=== PATIENT | female | born 1975 | race Caucasian/White ===

== ENCOUNTER → 2020-02-18 15:03 | Outpatient (CLI) | payer OTHER, SELFPAY ==
--- NOTE | ~2020-02-18 | XR_ITS ---
XR ankle RT min 3V DATE: 02/18/2020 15:45 INDICATION: Right ankle pain and bruising medially. Injury 2 days ago TECHNIQUE: 4 views COMPARISON: None FINDINGS: There is mild plantar calcaneal enthesopathy. No fracture or dislocation of the ankle or disruption of the ankle mortise. No periosteal reaction or bone destruction. IMPRESSION: Mild plantar calcaneal enthesopathy No significant abnormality of the right ankle Reviewed, dictated and finalized at location A.
== END ==
PROVIDERS: PCP Family Medicine; Visit Provider Family Medicine
DX: M77.31 Calcaneal spur, right foot (principal)
CPT/HCPCS: 73610